=== PATIENT | male | born 1985 | race Caucasian/White ===

== ENCOUNTER 2017-09-02 14:29 | Emergency (ER) | payer OTHER ==
[~2017-09-02] VITALS: Ht 190.5 cm; Wt 98.0 kg
[2017-09-02 14:31] VITALS: BP 140/97; PULSE 96; TEMP 36.8; O2SAT 95; Ht 190.5 cm; Wt 98.0 kg
[2017-09-02] MEDS ORDERED: NAPR1TAB9 PO (14:51)
--- NOTE | 2017-09-02 15:14 | DIAGNOSTIC IMAGING REPORT ---
R ANKLE MIN 3 VIEWS ROUTINE CLINICAL HISTORY: Right ankle and foot pain following injury. COMPARISON: None FINDINGS: Alignment of the right ankle is anatomic. Talar dome is intact. No acute fracture is identified. A 4 mm corticated ossicle along the lateral right midfoot is noted. IMPRESSION: 1. No acute fracture or dislocation of the right ankle. 2. 4 mm ossicle along the lateral right midfoot which is age-indeterminate but likely old. Electronically signed by: Jitendra Hernández M.D. 09/02/2017 3:12 PM Dictated Date/Time: 09/02/2017 3:11 PM
--- NOTE | 2017-09-02 15:27 | DIAGNOSTIC IMAGING REPORT ---
R FOOT MIN 3 VIEWS ROUTINE CLINICAL HISTORY: 31 years-old Male presenting with right ankle/foot injury. TECHNIQUE: Frontal, oblique, and lateral views of the right foot were obtained. COMPARISON: None. FINDINGS: No acute fracture or malalignment. Tiny ossific fragment at the lateral distal aspect of the calcaneus possibly a congenital os peroneum or old injury. No radiographic soft tissue abnormality. IMPRESSION: No convincing evidence of acute osseous injury of the right foot. Electronically signed by: Parrish Regalado M.D. 09/02/2017 3:26 PM Dictated Date/Time: 09/02/2017 3:23 PM
--- NOTE | 2017-09-02 15:28 | EMERGENCY ROOM VISIT NOTE ---
ED Visit Note First contact with patient: 14:33 CHIEF COMPLAINT: Ankle pain HISTORY OF PRESENT ILLNESS: This 31-year-old male patient presents to the emergency department ambulatory after sustaining an injury to the right ankle and foot with a twisting, inversion motion just prior to arrival. The patient states that he was playing basketball and came down on an inverted right ankle. The patient reports feeling a popping sensation at that time. He reports pain in the ankle rated a 7/10. He took Aleve and ice to the ankle without relief. He reports history of previous right ankle fractures in the past. He denies history of surgery. He does report some pain in the foot. He denies any pain of the upper leg or knee. He denies any numbness or weakness. He has not been able to walk on the ankle. REVIEW OF SYSTEMS: A 6 system review of systems was completed with positives and pertinent negatives listed in the HPI. ALLERGIES: No known drug allergies MEDICATIONS: No chronic medications PMH: No significant past medical history. SOCIAL HISTORY: Patient lives locally with family. Nonsmoker, admits to occasional alcohol use. PHYSICAL EXAM: Vital Signs: Reviewed Nurse's notes, vital signs stable. GENERAL : This is a 31-year-old male, no acute distress, but appears in pain, well- developed, well-nourished. MENTAL STATUS: Alert, oriented to person place and time, and cooperative. MUSCULOSKELETAL: The right ankle is swollen and tender over the lateral malleolus, but the skin is intact and there is no ligamentous instability. There is proximal fifth metatarsal tenderness. There is no tenderness over the rest of the foot. There is no calf or proximal tibia/ fibular tenderness. There is no visual deformity. The foot and toes are warm and well-perfused. Dorsalis pedis pulse 2+. Sensation to pain and light touch is intact. Capillary refill less than 2 seconds. RADIOGRAPHIC FINDINGS: R ANKLE MIN 3 VIEWS ROUTINE IMPRESSION: 1. No acute fracture or dislocation of the right ankle. 2. 4 mm ossicle along the lateral right midfoot which is age-indeterminate but likely old. R FOOT MIN 3 VIEWS ROUTINE FINDINGS: No acute fracture or malalignment. Tiny ossific fragment at the lateral distal aspect of the calcaneus possibly a congenital os peroneum or old injury. No radiographic soft tissue abnormality. IMPRESSION: No convincing evidence of acute osseous injury of the right foot. EMERGENCY DEPARTMENT COURSE: I examined the patient. X-rays of the right ankle and foot were reviewed by myself and read by radiology and reveal no acute findings. Gel ankle splint was applied to the ankle under my direction and the position was satisfactory. Neurovascular status was rechecked and intact. The patient was instructed on the use of crutches. Conservative measures were discussed with the patient. He will follow-up with orthopedics as needed. He verbalized understanding of my assessment and treatment plan. The patient was discharged home in good condition. Medication reconciliation: I attest that I have personally reviewed the patient 's current medication list. Blood Pressure Screening: Patient was found to have a slightly elevated blood pressure due to circumstances. I do not believe that the patient requires hypertension monitoring. DIAGNOSIS: Right ankle injury Current/Historical Medications Scheduled Naproxen (Aleve), 220 MG PO PRN UD Vital Signs Date Time Temp Pulse Resp B/P (MAP) Pulse Ox O2 Delivery O2 Flow Rate FiO2 09/02/17 14:31 36.8 96 18 140/97 95 Room Air Departure Information Impression Primary Impression: Right ankle injury Dispostion Home / Self-Care Condition GOOD Referrals No Doctor, Assigned (PCP) Robbi Rendon MD Patient Instructions My [facility] Additional Instructions You have been treated in the Emergency Department for an Ankle sprain. For pain control, you can use the following [id number] medicines (if >12 yo): - Regular strength (325mg/tab) Tylenol (acetaminophen) 2 tabs every 4-6 hours as needed. Do not exceed 12 tablets in a 24 hour period. Avoid taking more than 4 grams (4000 mg) of Tylenol per day. This includes any other sources of acetaminophen you may take on a regular basis. - Regular strength (200 mg/tab) Advil (ibuprofen) 1-2 tabs every 4-6 hours as needed. Do not exceed a dose of 3200 mg per day. If this is a recent injury (<24 hrs), ice can be applied to the area of pain for the first 3 days to help decrease pain and inflammation. Wear the gel ankle splint and use the crutches to keep weight off the ankle until you're able to bear weight without any pain. Call orthopedics if you have worsening or persistent symptoms. Return to the Emergency Department if your current symptoms worsen despite treatment course outlined above, or if you develop any of the following symptoms : intractable pain despite aforementioned treatment course or new onset of numbness or tingling of the foot. Problem Qualifiers Primary Impression: Right ankle injury Encounter type: initial encounter Qualified Codes: S99.911A - Unspecified injury of right ankle, initial encounter
== END 2017-09-02 16:02 | disposition home or self-care (01) ==
LOC: C.EDB 14:30 → C.EDD 16:02
DX: S99.911A Unspecified injury of right ankle, initial encounter (principal); X50.1XXA Overexertion from prolonged static or awkward postures, initial encounter; Y93.67 Activity, basketball